=== PATIENT | male | born 1970 | race Caucasian/White ===

== ENCOUNTER 2017-08-21 19:01 | Observation (INO) | payer OTHER ==
--- NOTE | 2017-08-21 19:11 | CPEKG ---
Heart Rate: 67 RR Interval: 896 P-R Interval: 184 QRSD Interval: 92 QT Interval: 420 QTC Interval: 444 P [place]: 47 QRS [place]: 65 T Wave [place]: -22 EKG Severity - ABNORMAL ECG - EKG Impression: SINUS RHYTHM EKG Impression: CONSIDER LEFT VENTRICULAR HYPERTROPHY EKG Impression: ABNORMAL T, CONSIDER ISCHEMIA, INFERIOR LEADS Electronically Signed By: Mely Angeles 21-Aug-2017 21:34:17
[2017-08-21] MEDS ORDERED: NS 1,000 ML IV ONE (19:35)
--- NOTE | 2017-08-21 19:41 | EDPHY ---
H & P Stated Complaint: syncopal Time Seen by Provider: 08/21/17 19:03 HPI/ROS: CHIEF COMPLAINT: Syncope HISTORY OF PRESENT ILLNESS: 47-year-old male presents to the emergency department after a syncopal episode this evening. Patient went for long run today and when he returned, his noted that he was quite diaphoretic. Patient himself states that he felt like the run was normal. He did not feel overly tired during run. He denies chest pain, palpitation, shortness of breath while exercising. After arriving home the patient and his family then went out to dinner. Patient reports ingesting 10 mg marijuana edible prior to dinner. At dinner he had 1 beer. Long Term through his meal a patient reports a brief episode of feeling somewhat nauseous and then was noted to have a syncopal episode lasting 5-10 seconds per his family. Patient was sitting at that time. This syncopal episode was followed by 2 brief episodes of near- syncope. noted significant diaphoresis following this. On arrival to the emergency department patient reports feeling improved. No recent fevers or chills, no complaints of chest pain or shortness of breath. No recent vomiting, diarrhea, or urinary complaints. The patient did return from [place] 14 [place] trip several days ago. REVIEW OF SYSTEMS: Aside from elements discussed in the HPI, a comprehensive 10-point review of systems was reviewed and is negative. PAST MEDICAL HISTORY: Patient denies. SOCIAL HISTORY: Social alcohol use, nonsmoker. Does use edible marijuana on a regular basis. VITAL SIGNS Reviewed by me. GENERAL: Well-developed, well-nourished, resting comfortably in no respiratory distress. HEENT: Atraumatic. Eyes: No icterus, no injection. Mouth: Slightly dry lips , moist mucous membranes. No erythema or lesions. Neck: supple with no adenopathy. LUNGS: Clear to auscultation bilaterally, no wheezes, rhonchi or rales. CARDIAC: Regular rate and rhythm, no rubs, murmurs or gallops. ABDOMEN: Soft, nontender, nondistended, bowel sounds normal. BACK: No CVA tenderness. EXTREMITIES: No trauma. No edema. Range of motion is normal throughout. NEURO: Alert and oriented, grossly nonfocal. SKIN: Warm and dry, no rash. PSYCHIATRIC: Normal mentation, no agitation. - Medical/Surgical History Other PMH: denies - Social History Smoking Status: Never smoked Constitutional: Initial Vital Signs Temperature (C) 36.4 C 08/21/17 19:05 Heart Rate 74 08/21/17 19:05 Respiratory Rate 18 08/21/17 19:05 Blood Pressure 120/94 H 08/21/17 19:05 O2 Sat (%) 95 08/21/17 19:05 O2 Delivery Mode Room Air Allergies/Adverse Reactions: No Known Allergies Allergy (Unverified 08/21/17 19:05) Home Medications: Medication Instructions Recorded NK [No Known Home Meds] 08/21/17 Medical Decision Making - Diagnostics EKG Interpretation: 12-LEAD EKG: Please see the full report in [facility]. My interpretation: sinus rhythm. TWI inferiorly suggestive of acute ischemia. ED Course/Re-evaluation: IV placed. Fluids begun. Patient's laboratory evaluation is largely unremarkable. His troponin is negative. However abnormal EKG with TWI inferiorly which are suggestive of ischemia. No prior EKG available. Course discussed with the Dr. Lackey, from Cardiology. Will admit the patient for serial troponins, risk stratification, possible echocardiogram in the morning given his abnormal EKG. Course discussed with Dr. Jose J Miner. Differential Diagnosis: Differential diagnosis the patient's presenting complaint considered including but not limited to vasovagal syncope, arrhythmia, dehydration, cardiac ischemia , and blood loss. Consult/Admit Bed Type: Dr. Miner, [facility] - Data Points Laboratory Results: Laboratory Results 08/21/17 19:19 08/21/17 19:19 Medications Given: Sodium Chloride (Ns) 1,000 mls @ 150 mls/hr IV CONT OLGA Stop: 02/17/18 21:29 Last Admin: 08/22/17 04:12 Dose: 1,000 mls Discontinued Medications Aspirin (Aspirin) 324 mg PO EDNOW ONE Stop: 08/21/17 21:18 Last Admin: 08/21/17 22:05 Dose: 324 mg Sodium Chloride (Ns) 1,000 mls @ 0 mls/hr IV ONCE ONE PRN Reason: Wide Open Stop: 08/21/17 19:36 Last Admin: 08/21/17 19:57 Dose: 1,000 mls Departure - Departure Disposition: [facility] Inpatient Acute Clinical Impression: Abnormal EKG Syncope Qualifiers: Syncope type: unspecified Qualified Code(s): R55 - Syncope and collapse
[2017-08-21 19:53] LABS: % IMMATURE GRANULYOCYTES 0.4 % (0.0-1.1); ABSOLUTE IMMATURE GRANULOCYTES 0.03 10^3/uL (0.00-0.10); ADD DIFF? NO; ADD MORPH? NO; ADD SCAN? NO; ATYPICAL LYMPHOCYTE FLAG 30 (0-99); FRAGMENT RBC FLAG 0 (0-99); HEMATOCRIT 40.5 % (40.0-51.0); HEMOGLOBIN 14.4 g/dL (13.7-17.5); LEFT SHIFT FLG 0 (0-99); LIPEMIA HEMOLYSIS FLAG 90 (0-99); MEAN CELL HEMOGLOBIN CONCENTR. 35.6 g/dL (32.4-36.7); MEAN PLATELET VOLUME 8.9 fL (8.7-11.7); PLATELET CLUMPS FLAG 0 (0-99); PLATELET COUNT 255 10^3/uL (150-400); RED CELL DISTRIBUTION WIDTH 12.1 % (11.5-15.2)
[2017-08-21 20:00] LABS: ANION GAP 12 mEq/L (8-16); CALCIUM 10.2 mg/dL (8.5-10.4); CARBON DIOXIDE 24 mEq/l (22-31); CHLORIDE 102 mEq/L (97-110); CREATININE 1.2 mg/dL (0.7-1.3); GLOMERULAR FILTRATION RATE > 60; GLUCOSE 137 mg/dL (70-100); POTASSIUM 3.8 mEq/L (3.5-5.2); SODIUM 138 mEq/L (134-144)
[2017-08-21 20:12] LABS: TROPONIN I < 0.012 ng/mL (0.000-0.034)
[2017-08-21] MEDS ORDERED: ASPIRIN 81 MG CHEWABLE TAB PO ONE (21:17)
[2017-08-21] MEDS ORDERED: ONDANSETRON 4 MG/2 ML VIAL IVP PRN (21:20)
[2017-08-21] MEDS ORDERED: ACETAMINOPHEN 325 MG TAB PO PRN (21:20)
[2017-08-21] MEDS ORDERED: ONDANSETRON DISINTEGRATING 4 MG TAB PO PRN (21:20)
[2017-08-21] MEDS: NS 1,000 ML IV SCH (22:05)
--- NOTE | 2017-08-21 22:44 | PDGENHP ---
History and Physical - Chief Complaint Acute syncope - History of Present Illness Primary care provider: None HPI: 47-year-old male presenting with acute syncope characterized as complete loss of consciousness with associated diaphoresis with onset of symptoms on the evening of this presentation while eating dinner. The event was witnessed by the patient's and she reports that the duration of the initial loss of consciousness was approximately 5 seconds. The patient then experienced 2 subsequent, more brief episodes. These episodes occurred in the context of eating and drinking very little during the day of presentation, followed by taking an edible marijuana, drinking 1 beer, and eating approximately 50% of his meal. The patient had also gone for a 1 hour run prior. Upon returning from his run, the patient's noted that he seemed somewhat diaphoretic, then the patient consume the elbow, went out to dinner with his , experienced the after mentioned symptoms. The patient has never experienced similar symptoms, and the patient is very physically active, without any recent exercise induced chest pains or reduction in exercise tolerance. He has not been experiencing any infectious symptoms, but he has noted some oliguria on the evening of this presentation. History Information - Allergies/Home Medication List Allergies/Adverse Reactions: No Known Allergies Allergy (Unverified 08/21/17 19:05) Home Medications: NK [No Known Home Meds] 08/21/17 [Last Taken Unknown] I have personally reviewed and updated: family history, medical history, social history, surgical history - Past Medical History no pertinent PMH - Surgical History Reports: no pertinent surgical hx - Family History Additional family history: No family history of sudden cardiac - Social History Smoking Status: Never smoked Alcohol Use: Occasionally Drug Use: Marijuana (Edibles) Additional social history: Runs daily, travels internationally for work Review of Systems Review of Systems: ROS: 10pt was reviewed & negative except for what was stated in HPI & below Neurological: Reports: other (Syncope) Physical Exam Physical Exam: Temp Pulse Resp BP Pulse Ox 36.9 C 77 16 149/93 H 94 08/21/17 21:35 08/21/17 21:35 08/21/17 21:35 08/21/17 21:35 08/21/17 21:35 Constitutional: no apparent distress, appears nourished, not in pain Eyes: PERRL, anicteric sclera, EOMI Ears, Nose, Mouth, Throat: moist mucous membranes, hearing normal, ears appear normal, no oral mucosal ulcers Cardiovascular: regular rate and rhythym, systolic murmur (1/6 systolic murmur at the right sternal border), No edema Respiratory: no respiratory distress, no rales or rhonchi, clear to auscultation Gastrointestinal: normoactive bowel sounds, soft, non-tender abdomen, no palpable masses Skin: warm, normal color, no rashes or abrasions, no fluctuance, no induration, No mottled Musculoskeletal: full muscle strength Neurologic: AAOx3, sensation intact bilaterally, No weakness Psychiatric: interacting appropriately, not anxious, not encephalopathic, thought process linear Lab Data & Imaging Review 08/21/17 19:19 08/21/17 19: WBC 8.39 10^3/uL (3.80-9.50) 08/21/17 19: RBC 4.50 10^6/uL (4.40-6.38) 08/21/17 19: Hgb 14.4 g/dL (13.7-17.5) 08/21/17 19: Hct 40.5 % (40.0-51.0) 08/21/17 19: MCV 90.0 fL (81.5-99.8) 08/21/17 19: MCH 32.0 pg (27.9-34.1) 08/21/17 19: MCHC 35.6 g/dL (32.4-36.7) 08/21/17 19: RDW 12.1 % (11.5-15.2) 08/21/17 19:19 Plt Count 255 10^3/uL (150-400) 08/21/17 19:19 MPV 8.9 fL (8.7-11.7) 08/21/17 19:19 Neut % (Auto) 55.0 % (39.3-74.2) 08/21/17 19: Lymph % (Auto) 32.4 % (15.0-45.0) 08/21/17 19:19 [place] % (Auto) 11.0 % (4.5-13.0) 08/21/17 19:19 Eos % (Auto) 0.8 % (0.6-7.6) 08/21/17 19:19 Baso % (Auto) 0.4 % (0.3-1.7) 08/21/17 19:19 Nucleat RBC Rel Count 0.0 % (0.0-0.2) 08/21/17 19:19 Absolute Neuts (auto) 4.62 10^3/uL (1.70-6.50) 08/21/17 19:19 Absolute Lymphs (auto) 2.72 10^3/uL (1.00-3.00) 08/21/17 19:19 Absolute Monos (auto) 0.92 10^3/uL (0.30-0.80) H 08/21/17 19:19 Absolute Eos (auto) 0.07 10^3/uL (0.03-0.40) 08/21/17 19:19 Absolute Basos (auto) 0.03 10^3/uL (0.02-0.10) 08/21/17 19:19 Absolute Nucleated RBC 0.00 10^3/uL (0-0.01) 08/21/17 19:19 Immature Gran % 0.4 % (0.0-1.1) 08/21/17 19:19 Immature Gran # 0.03 10^3/uL (0.00-0.10) 08/21/17 19:19 D-Dimer 0.48 ug/mLFEU (0.00-0.50) 08/21/17 19:19 Sodium 138 mEq/L (134-144) 08/21/17 19:19 Potassium 3.8 mEq/L (3.5-5.2) 08/21/17 19:19 Chloride 102 mEq/L (97-110) 08/21/17 19:19 Carbon Dioxide 24 mEq/l (22-31) 08/21/17 19:19 Anion Gap 12 mEq/L (8-16) 08/21/17 19:19 BUN 22 mg/dL (7-23) 08/21/17 19:19 Creatinine 1.2 mg/dL (0.7-1.3) 08/21/17 19:19 Estimated GFR > 60 08/21/17 19:19 Glucose 137 mg/dL (70-100) H 08/21/17 19:19 Calcium 10.2 mg/dL (8.5-10.4) 08/21/17 19:19 Troponin I < 0.012 ng/mL (0.000-0.034) 08/21/17 19:19 Visualized and Interpreted EKG results: Yes EKG Interpretation: Positive for: other (Normal sinus rhythm with T-wave inversions inferiorly, V4) Assessment & Plan Assessment: 47-year-old male presents with acute syncope Plan: 1. Syncope. Acute, new problem this provider, further workup indicated. Most likely etiology is vasovagal episode, based on the patient's description of events, provoked by a meal in the setting of poor oral intake during the day of presentation, exacerbated by edible marijuana as well as 1 alcoholic beverage -that being said, the patient's EKG conduction pattern is certainly not normal, an echocardiogram is warranted -carotid ultrasound to rule out any underlying vertebrobasilar insufficiency -discussed with Dr. Mely Angeles, she reports to me that she has discussed this with Dr. Tay Lackey, he has recommended rhythm monitoring overnight as well as echocardiogram and troponin -monitor on telemetry, repeat troponin in a.m., get TSH level -get orthostatics now, give IV fluids overnight, repeat orthostatics in a.m. -if all the above negative, continue to educate the patient regarding vasovagal pathology, encourage reduced dosage of marijuana or abstinence -defer stress testing at this time, as the patient is very physically active, and does not experience any exercise induced symptoms -recommended establishing care w/ PCP (Dr. Adair) Diet. Regular Prophylaxis. Low risk patient, SCDs Code. Full Disposition. Anticipated discharge is 08/22/2017, pending further workup as outlined above.
[2017-08-22] MEDS: NS 1,000 ML IV SCH (04:12)
[2017-08-22 05:46] LABS: ALANINE AMINOTRANSFERASE 43 IU/L (21-72); ALBUMIN 3.6 g/dL (3.5-5.0); ALKALINE PHOSPHATASE 44 IU/L (38-126); ANION GAP 9 mEq/L (8-16); ASPARTATE AMINOTRANSFERASE 35 IU/L (17-59); BILIRUBIN,TOTAL 0.5 mg/dL (0.1-1.4); CALCIUM 8.7 mg/dL (8.5-10.4); CARBON DIOXIDE 23 mEq/l (22-31); CHLORIDE 107 mEq/L (97-110); CREATININE 0.9 mg/dL (0.7-1.3); GLOMERULAR FILTRATION RATE > 60; GLUCOSE 82 mg/dL (70-100); MAGNESIUM 1.8 mg/dL (1.6-2.3); POTASSIUM 3.8 mEq/L (3.5-5.2); SODIUM 139 mEq/L (134-144); TOTAL PROTEIN 5.8 g/dL (6.3-8.2)
[2017-08-22 05:57] LABS: TROPONIN I < 0.012 ng/mL (0.000-0.034)
--- NOTE | 2017-08-22 09:13 | ASMTCMCOM ---
CM Note CM Note Notes: 08/22/2017 Case Management Note Reviewed chart. No case management d/c needs identified d/t pt age, marital status and activity levels prior to admission. Pt exercises regularly completing a 1 hour run on day of admission. Case Management d/c poc: Independent when medically stable with follow up as directed. Case Management available if needs change. Date Signed: 08/22/2017 09:12 AM Electronically Signed By:Yelena Puente RN
--- NOTE | 2017-08-22 10:03 | ECHO ---
[email or web address] [address] [address] Main: [phone] Fax: Transthoracic Echocardiogram Name: ARA GIANG MR#: [id number] Study Date: 08/22/2017 Study Time: 07:40 AM Date of : 1970 Age: 47 year(s) Height: 172.7 cm (68 in.) Weight: 74.84 kg (165 lb.) BSA: 1.88 m2 Gender: Male Examination: Echo Indication: Cardiac: syncope Image Quality: Contrast: Requested by: Luca Miner BP: 142 mmHg/82 mmHg Heart Rate: Rhythm: Indication: Cardiac: syncope Procedure Staff Credit Risk Management Director: Cheryl Brownlee Physician: Chauncey Hernandez Requesting Provider: Conclusions: Normal study mild MR Measurements: Chambers Valvular Assessment AV/MV Valvular Assessment TV/PV Normal Normal Normal Name Value Range Name Value Range Name Value Range Ao Louisa (MM): 3.7 cm (2.2 cm-3.7 AV Vmax: 1.47 m/s (1 m/s-1.7 TR Vmax: 2.06 mm/s ( - ) cm) m/s) TR PGmax: 17 mmHg ( - ) IVSd (2D): 0.9 cm (0.6 cm-1.1 AV maxP mmHg ( - ) syst. PAP: 22 mmHg ( - ) cm) MV E Vmax: 0.80 m/s ( - ) LVDd (2D): 5.1 cm (4.2 cm-5.9 MV A Vmax: 0.62 m/s ( - ) cm) MV E/A: 1.29 ( - ) LVDs (2D): 2.8 cm (2.1 cm-4 cm) LVPWd (2D): 1.0 cm (0.6 cm-1 cm) LVEF (MOD4): 79 % (>=55 %) Continued Measurements: Chambers Valvular Assessment AV/MV Valvular Assessment TV/PV Name Value Name Value Name Value LADs: 4.3 cm MV E/E' Septal: 9.10 CVP (est.): 5 mmHg LADs Lon.9 cm MV E/E' Lateral: 6.50 LA Area: 24.4 cm2 Findings: Left Ventricle: Patient: ARA GIANG Study Date: 08/22/2017 Page 1 of 2 07:40 AM Normal size left ventricle. Global hypercontractility of the left ventricle. EF is 79 %. No regional wall motion abnormality. Right Ventricle: Normal size right ventricle. Left Atrium: The left atrium is mildly dilated. Right Atrium: The right atrium is normal in size. Mitral Valve: The mitral valve is normal in appearance. Mild mitral valve regurgitation is present. Aortic Valve: The aortic valve is tri-leaflet and functions normally. There is no aortic valve regurgitation. Tricuspid Valve: The tricuspid valve appears normal. Mild tricuspid regurgitation is present. Pericardium: No pericardial effusion. (No Signature Object) Patient: ARA GIANG Study Date: 08/22/2017 Page 2 of 2 07:40 AM [id number]
[2017-08-22 11:13] VITALS: BP 134/95; PULSE 62; RESP 18; TEMP 97.9; O2SAT 94
--- NOTE | 2017-08-22 11:38 | CPEKG ---
Heart Rate: 58 RR Interval: 1034 P-R Interval: 208 QRSD Interval: 90 QT Interval: 440 QTC Interval: 433 P [place]: 45 QRS [place]: 71 T Wave [place]: 8 EKG Severity - ABNORMAL ECG - EKG Impression: SINUS RHYTHM EKG Impression: LEFT VENTRICULAR HYPERTROPHY EKG Impression: ST ELEV, PROBABLE NORMAL EARLY REPOL PATTERN Preliminary Awaiting MD Review
[2017-08-22] MEDS ORDERED: IOPAMIDOL (ISOVUE 370) 100 ML BTL IV ONE (13:57)
--- NOTE | 2017-08-22 17:35 | GDS ---
[f rep st] DISCHARGE SUMMARY DIAGNOSES: 1. Syncope. 2. Left ventricular hypertrophy, likely due to endurance athletics. 3. Right coronary artery minimal calcified plaque. HOSPITAL COURSE: A 47-year-old man who presented with syncope. Notably, his EKG was abnormal with i nferior inverted T-waves. He had not had any previous cardiac workup. Carotid Doppler study showed normal carotids. Echocardiogram showed normal left ventricle with global hypercontractility. He had negative troponins. Because of this, cardiac CT was ordered. This showed minimal calcified plaque in the RCA. This certainly does not explain his episode of syncope. He should undergo medical manag ement for this minimal plaque including aspirin, follow up with Lalit Chow to consider statin ther apy. Also recommend an event monitor to rule out arrhythmia as the etiology. This will be mailed to him later this week. I have given him [facility]it [facility]'s phone number to follow up with. He is discha [facility] in stable condition. /[id number]/MODL
--- NOTE | 2017-08-23 09:41 | ASDISCHSUM ---
Discharge Information Plan Status:Home with No Needs Medically Cleared to Leave:08/22/2017 Discharge Date:08/22/2017 06:09 PM CM D/C Disposition:Home, Routine, Self-Care ADT D/C Disposition:Home, Routine, Self-Care Projected Discharge Date:08/22/2017 12:00 AM Transportation at D/C:Family Discharge Delay Reason: Follow-Up Date:08/22/2017 12:00 AM Discharge Slot: Final Diagnosis: Placement Information Patient Contact Information Contact Name:RENEE Relationship: Address:[address] [place] [address] Work Phone: City:[place] Alternate Phone: State/Zip Code:[place] [address] Email: Financial Information Financial Class:HMO and PPO Plans Primary Plan Desc:NERY PPO POS HMO SIG ADM Primary Plan Number:[id number] Secondary Plan Desc: Secondary Plan Number: Assessment Information [facility] CM Progress Note CM Note CM Note Notes: 08/22/2017 Case Management Note Reviewed chart. No case management d/c needs identified d/t pt age, marital status and activity levels prior to admission. Pt exercises regularly completing a 1 hour run on day of admission. Case Management d/c poc: Independent when medically stable with follow up as directed. Case Management available if needs change. Date Signed: 08/22/2017 09:12 AM Electronically Signed By:Yelena Puente RN Intervention Information
== END 2017-08-22 18:09 | disposition home or self-care (01) ==
LOC: F2W 21:25
PROVIDERS: ADMIT Internal Medicine; ATTEND Internal Medicine
DX: R55 Syncope and collapse (principal); I51.7 Cardiomegaly; I25.10 Atherosclerotic heart disease of native coronary artery without angina pectoris
CPT/HCPCS: 75574; 93005; 93306; 93880; G0378; Q9967